=== PATIENT | male | born 1995 | race American Indian/Alaskan Native ===

== ENCOUNTER 2018-08-23 11:58 | Emergency (ER) | payer OTHER ==
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
[2018-08-23 17:04] VITALS: BP 124/82
== END 2018-08-23 17:04 | disposition home or self-care (01) ==
LOC: ED 11:58
DX: M54.5 Low back pain (principal); Z87.891 Personal history of nicotine dependence; V89.2XXA Person injured in unspecified motor-vehicle accident, traffic, initial encounter; Y93.89 Activity, other specified; Y92.488 Other paved roadways as the place of occurrence of the external cause; Y99.8 Other external cause status
CPT/HCPCS: 72070; 72100; 72131